=== PATIENT | female | born 1975 ===

== ENCOUNTER → 2019-09-14 | Outpatient (CLI) | payer OTHER ==
--- NOTE | 2019-09-14 09:34 | WOMENS IMAGING REPORT ---
EXAM DESCRIPTION: BILAT SCREENING MAMMO W/CAD COMPLETED DATE/TIME: 09/14/2019 8:13 am REASON FOR STUDY: Z12.31 SCREENING [id number] ENCNTR SCREEN MAMMOGRAM FOR MALIGNANT NEOPLASM OF BR E COMPARISON: Baseline study EXAM PARAMETERS: Standard craniocaudal and mediolateral oblique views of each breast recorded using digital acquisition. Read with the assistance of CAD. .[facility] - [employer] Improvement Leader Version 9.2 LIMITATIONS: None. FINDINGS: RIGHT BREAST MASSES: On the right side, a well-circumscribed low-density mammographic nodule is present at 1 o'binh ck position about 10 cm from nipple. In the upper outer quadrant, an ill-defined 2 cm nodular density is present better shown on MLO view, about 10 cm from nipple. Both of these require further investigation. CC and mL 0 cone compression images, exaggerated craniocaudad view and 90 mediolateral view ultrasound also be required for foll owup. CALCIFICATIONS: No new or suspicious calcifications. ARCHITECTURAL DISTORTION: None. ASYMMETRY: None noted. OTHER: No other significant findings. LEFT BREAST MASSES: In the upper outer quadrant left breast about 10 cm from the nipple, a mammographic nodule wi th border loss is present. This requires further investigation with cone compression CC and mL mammo grams, left breast 90 mediolateral view and exaggerated craniocaudad view. This persists then ultra sound would be required followup. CALCIFICATIONS: No new or suspicious calcifications. ARCHITECTURAL DISTORTION: None. ASYMMETRY: None noted. OTHER: No other significant findings. IMPRESSION: Baseline screening mammogram with bilateral nodules for which diagnostic breast imaging is recommended as above 0 Incomplete: Needs Additional Imaging Evaluation and/or prior Mammograms for Comparison. BREAST DENSITY: b. There are scattered areas of fibroglandular density. BIRAD: ASSESSMENT: 0 Incomplete: Needs Additional Imaging Evaluation and/or prior Mammograms for C omparison. RECOMMENDATION: RECOMMENDED FOLLOW-UP: Bilateral diagnostic mammograms and breast ultrasound The patient will be contacted for additional imaging. COMMENT: The patient has been notified of the results by letter per MQSA requirements. Additional no tification policies are in place for contacting patient with suspicious or incomplete findings. Quality ID #225: The [employer] recommends an annual screening mammogram for women aged 40 years or over. This facility utilizes a reminder system to ensure that all patients receive reminder letters, and/or direct phone calls for appointments. This includes reminders for routine scr eening mammograms, diagnostic mammograms, or other Breast Imaging Interventions when appropriate. Th is patient will be placed in the appropriate reminder system. TECHNICAL DOCUMENTATION: FINDING NUMBER: (1) ASSESSMENT: (1) JOB ID: [id number] [employer]- All Rights Reserved Reading location - IP/workstation name: [email or web address]
== END ==
LOC: WI 07:30
PROVIDERS: ATTEND Nurse Practitioner Family
DX: Z12.31 Encounter for screening mammogram for malignant neoplasm of breast (principal); N63.21 Unspecified lump in the left breast, upper outer quadrant; N63.11 Unspecified lump in the right breast, upper outer quadrant
CPT/HCPCS: 77067

== ENCOUNTER → 2019-09-24 | Outpatient (CLI) | payer OTHER ==
--- NOTE | 2019-09-24 15:12 | WOMENS IMAGING REPORT ---
EXAM DESCRIPTION: BILAT DIAGNOSTIC MAMMO W/CAD; U/S BREAST UNILAT LIMITED COMPLETED DATE/TIME: 09/24/2019 8:36 am; 09/24/2019 9:30 am REASON FOR STUDY: R92.2 BILAT DX; RT BREAST R92.2; LT BREAST R92.2 R92.2 INCONCLUSIVE MAMMOGRAM COMPARISON: Bilateral screening mammography 09/14/2019 EXAM PARAMETERS: Cone compression craniocaudal and mediolateral oblique views of each breast recorde d using digital acquisition. Bilateral 90 mediolateral views. Bilateral breast ultrasound was also performed. Read with the assistance of CAD: .[facility] - [employer] Engineer Version 9.2 LIMITATIONS: None. FINDINGS: RIGHT BREAST MASSES: In the upper half of the right breast on cone compression, a low-density well-circumscribed m ammographic nodule persists at about the 12 o'clock position. This was subsequently shown to represe nt a breast cyst. CALCIFICATIONS: No new or suspicious calcifications. ARCHITECTURAL DISTORTION: None. ASYMMETRY: None noted. OTHER: No other significant findings. LEFT BREAST MASSES: No suspicious masses. CALCIFICATIONS: No new or suspicious calcifications. ARCHITECTURAL DISTORTION: None. ASYMMETRY: None noted. OTHER: No other significant finding. Bilateral breast ultrasound: On the right side, the upper half of the right breast was image with ultrasound. At the 12 o'clock p osition, a 7 x 5 mm simple cyst is present, requiring no further specific workup. In the right breast upper outer quadrant about the 10 to 11 o'clock position, 7 cm from the nipple th ere is a hypoechoic solid 7 x 5 mm nodule which persists at ultrasound. This has ill-defined margins and is indeterminate for malignancy. Ultrasound-guided core biopsy with post biopsy clip placement and follow-up two-view mammogram is recommended. Left breast ultrasound was performed over the upper outer quadrant. No discrete cystic or solid lesi ons. No worrisome acoustic absorption. No focal findings. IMPRESSION: Hypoechoic solid 7 x 5 mm nodule right breast 10 to 11 o'clock position 7 cm from the ni pple. This requires further evaluation with ultrasound-guided core biopsy, post biopsy clip placemen t and immediate post procedure follow-up two-view mammogram. BREAST DENSITY: b. There are scattered areas of fibroglandular density. BIRAD: ASSESSMENT: 4 Suspicious. Biopsy should be performed in the absence of clinical contra-indic ation. RECOMMENDATION: RECOMMENDED FOLLOW UP: Ultrasound-guided core biopsy, 7 x 5 mm hypoechoic solid nodu le right breast 10 to 11 o'clock position. Post biopsy clip placement with immediate follow-up two-v iew mammogram. SPECIFIC INTERVENTION/IMAGING/CONSULTATION RECOMMENDED:As above COMMUNICATION:Patient notified by letter. Findings were not discussed with the patient at the time o f service COMMENT: The patient has been notified of the results by letter per SA requirements. Additional no tification policies are in place for contacting patient with suspicious or incomplete findings. Quality ID #225: The [employer] recommends an annual screening mammogram for women aged 40 years or over. This facility utilizes a reminder system to ensure that all patients receive reminder letters, and/or direct phone calls for appointments. This includes reminders for routine scr eening mammograms, diagnostic mammograms, or other Breast Imaging Interventions when appropriate. Th is patient will be placed in the appropriate reminder system. TECHNICAL DOCUMENTATION: FINDING NUMBER: (1) ASSESSMENT: (1) JOB ID: [id number] [employer]- All Rights Reserved Reading location - IP/workstation name: [email or web address]
--- NOTE | 2019-09-24 15:12 | WOMENS IMAGING REPORT ---
EXAM DESCRIPTION: BILAT DIAGNOSTIC MAMMO W/CAD; U/S BREAST UNILAT LIMITED COMPLETED DATE/TIME: 09/24/2019 8:36 am; 09/24/2019 9:30 am REASON FOR STUDY: R92.2 BILAT DX; RT BREAST R92.2; LT BREAST R92.2 R92.2 INCONCLUSIVE MAMMOGRAM COMPARISON: Bilateral screening mammography 09/14/2019 EXAM PARAMETERS: Cone compression craniocaudal and mediolateral oblique views of each breast recorde d using digital acquisition. Bilateral 90 mediolateral views. Bilateral breast ultrasound was also performed. Read with the assistance of CAD: .[facility] - [employer] Tool Planer Set Up Operator Version 9.2 LIMITATIONS: None. FINDINGS: RIGHT BREAST MASSES: In the upper half of the right breast on cone compression, a low-density well-circumscribed m ammographic nodule persists at about the 12 o'clock position. This was subsequently shown to represe nt a breast cyst. CALCIFICATIONS: No new or suspicious calcifications. ARCHITECTURAL DISTORTION: None. ASYMMETRY: None noted. OTHER: No other significant findings. LEFT BREAST MASSES: No suspicious masses. CALCIFICATIONS: No new or suspicious calcifications. ARCHITECTURAL DISTORTION: None. ASYMMETRY: None noted. OTHER: No other significant finding. Bilateral breast ultrasound: On the right side, the upper half of the right breast was image with ultrasound. At the 12 o'clock p osition, a 7 x 5 mm simple cyst is present, requiring no further specific workup. In the right breast upper outer quadrant about the 10 to 11 o'clock position, 7 cm from the nipple th ere is a hypoechoic solid 7 x 5 mm nodule which persists at ultrasound. This has ill-defined margins and is indeterminate for malignancy. Ultrasound-guided core biopsy with post biopsy clip placement and follow-up two-view mammogram is recommended. Left breast ultrasound was performed over the upper outer quadrant. No discrete cystic or solid lesi ons. No worrisome acoustic absorption. No focal findings. IMPRESSION: Hypoechoic solid 7 x 5 mm nodule right breast 10 to 11 o'clock position 7 cm from the ni pple. This requires further evaluation with ultrasound-guided core biopsy, post biopsy clip placemen t and immediate post procedure follow-up two-view mammogram. BREAST DENSITY: b. There are scattered areas of fibroglandular density. BIRAD: ASSESSMENT: 4 Suspicious. Biopsy should be performed in the absence of clinical contra-indic ation. RECOMMENDATION: RECOMMENDED FOLLOW UP: Ultrasound-guided core biopsy, 7 x 5 mm hypoechoic solid nodu le right breast 10 to 11 o'clock position. Post biopsy clip placement with immediate follow-up two-v iew mammogram. SPECIFIC INTERVENTION/IMAGING/CONSULTATION RECOMMENDED:As above COMMUNICATION:Patient notified by letter. Findings were not discussed with the patient at the time o f service COMMENT: The patient has been notified of the results by letter per SA requirements. Additional no tification policies are in place for contacting patient with suspicious or incomplete findings. Quality ID #225: [employer] recommends an annual screening mammogram for women aged 40 years or over. This facility utilizes a reminder system to ensure that all patients receive reminder letters, and/or direct phone calls for appointments. This includes reminders for routine scr eening mammograms, diagnostic mammograms, or other Breast Imaging Interventions when appropriate. Th is patient will be placed in the appropriate reminder system. TECHNICAL DOCUMENTATION: FINDING NUMBER: (1) ASSESSMENT: (1) JOB ID: [id number] [employer]- All Rights Reserved Reading location - IP/workstation name: [email or web address]
== END ==
LOC: WI 08:15
PROVIDERS: ATTEND Nurse Practitioner Family
DX: R92.2 Inconclusive mammogram (principal)
CPT/HCPCS: 76642; 77066

== ENCOUNTER → 2019-10-08 | Outpatient (CLI) | payer OTHER ==
--- NOTE | 2019-10-08 14:49 | WOMENS IMAGING REPORT ---
EXAM DESCRIPTION: U/S BREAST UNILAT LIMITED COMPLETED DATE/TIME: 10/08/2019 2:04 pm REASON FOR STUDY: N63.10 UNSPECIFIED LUMP IN THE RIGHT BREAST, UNSPECIFIED QUADRANT N63.10 UNSPECIF IED LUMP IN THE RIGHT BREAST, UNSPECIFIED KYM COMPARISON: None. TECHNIQUE: Real-time and static grayscale imaging performed of the right breast targeted to the area of clinical/mammographic concern. Selected color Doppler images recorded. LIMITATIONS: None. FINDINGS: Patient originally scheduled for breast biopsy. No suspicious abnormality could be identi fied on today's exam. IMPRESSION: Probable benign fibrocystic change. BIRAD: 3 Probably benign finding. Initial short-interval follow-up suggested. RECOMMENDATION: RECOMMENDED FOLLOW-UP: Six-month follow-up mammogram right breast and ultrasound if needed. COMMENT: The [employer] ([employer]) has developed recommendations for screening MRI of the breasts in certain patient populations, to be used in conjunction with mammography. Breast MRI s urveillance may be appropriate for women with more than 20% lifetime risk of developing breast cancer as determined by genetic testing, significant family history of the disease, or history of mantle r adiation for Hodgkins Disease. [employer] Practice Guidelines 2008. TECHNICAL DOCUMENTATION: JOB ID: [id number] [employer]- All Rights Reserved Reading location - IP/workstation name: [email or web address]
== END ==
LOC: EDSTATUS 10:23 → WI 12:50
PROVIDERS: ATTEND Nurse Practitioner Family
DX: N63.10 Unspecified lump in the right breast, unspecified quadrant (principal)
CPT/HCPCS: 76642